=== PATIENT | male | born 1950 | race Caucasian/White ===

== ENCOUNTER → 2016-03-21 | Outpatient (CLI) | payer OTHER | LOC: CAT 09:05 | DX: J32.2 Chronic ethmoidal sinusitis (principal); J32.0 Chronic maxillary sinusitis ==

== ENCOUNTER → 2020-11-29 | Outpatient (CLI) | payer OTHER | LOC: CAT 08:40 | PROVIDERS: ATTEND Family Medicine | DX: Z12.2 Encounter for screening for malignant neoplasm of respiratory organs (principal); R91.8 Other nonspecific abnormal finding of lung field; J84.10 Pulmonary fibrosis, unspecified; I77.810 Thoracic aortic ectasia; I70.0 Atherosclerosis of aorta; Z87.891 Personal history of nicotine dependence ==

== ENCOUNTER → 2020-12-13 | Outpatient (CLI) | payer OTHER | LOC: CAT 08:10 → RAD 08:10 | PROVIDERS: ATTEND Family Medicine | DX: Z13.6 Encounter for screening for cardiovascular disorders (principal) ==